=== PATIENT | male | born 2005 | race Caucasian/White ===

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

== ENCOUNTER 2025-02-11 14:46 | Outpatient (CLI) | payer BC, SELFPAY | END 2025-02-11 23:59 | disposition home or self-care (01) | LOC: RT 14:51 | PROVIDERS: PCP Nurse Practitioner; Visit Provider Nurse Practitioner | DX: R00.0 Tachycardia, unspecified (principal); R00.1 Bradycardia, unspecified; R07.9 Chest pain, unspecified | CPT/HCPCS: 93270; 93272 ==